=== PATIENT | male | born 1950 | race Two or more races ===

== ENCOUNTER 2018-12-02 10:15 | Inpatient (IN) | payer OTHER ==
[~2018-12-02] VITALS: Ht 188 cm; Wt 91.6 kg
[2018-12-05] MEDS ORDERED: ATORVASTATIN CA40 MG PO (15:18)
[2018-12-05] MEDS ORDERED: BENICAR40 MG PO (15:18)
[2018-12-05] MEDS ORDERED: ZETIA10 MG PO (15:18)
[2018-12-05] MEDS ORDERED: HYDROCHLOROTHIA25 MG PO (15:19)
[2018-12-05] MEDS ORDERED: METFORMIN HCL500 MG PO (15:19)
[2018-12-05] MEDS ORDERED: NORVASC5 MG PO (15:19)
[2018-12-09] MEDS ORDERED: MIRALAX17 GM PO (14:18)
[2018-12-09] MEDS ORDERED: TRAMADOL HCL50 MG PO (14:18)
[2018-12-09] MEDS ORDERED: NEURONTIN300 MG PO (14:18)
[2018-12-09] MEDS ORDERED: TYLENOL EXTRA500 MG PO (14:18)
== END 2018-12-09 15:35 | disposition home or self-care (01) | DRG 355 ==
LOC: SURH 12-08 07:00 → O/R 12-08 10:55 → SURH 12-08 13:45
PROVIDERS: ADMIT Surgery
PROC: 0KXL0Z6 Transfer Left Abdomen Muscle, Transverse Rectus Abdominis Myocutaneous Flap, Open Approach (ICD-10-PCS; 2018-12-08)
PROC: 0KXK0Z6 Transfer Right Abdomen Muscle, Transverse Rectus Abdominis Myocutaneous Flap, Open Approach (ICD-10-PCS; 2018-12-08)
PROC: 0WUF4JZ Supplement Abdominal Wall with Synthetic Substitute, Percutaneous Endoscopic Approach (ICD-10-PCS; principal; 2018-12-08 07:00)
DX: K43.0 Incisional hernia with obstruction, without gangrene (principal); K42.0 Umbilical hernia with obstruction, without gangrene; R26.2 Difficulty in walking, not elsewhere classified; R53.1 Weakness; E11.9 Type 2 diabetes mellitus without complications; I10 Essential (primary) hypertension; E78.00 Pure hypercholesterolemia, unspecified; N40.0 Benign prostatic hyperplasia without lower urinary tract symptoms; C61 Malignant neoplasm of prostate

== ENCOUNTER 2018-12-07 11:15 | Outpatient (CLI) | payer OTHER ==
[~2018-12-07 11:15] MED LIST: ATORVASTATIN CA40 MG PO; BENICAR40 MG PO; HYDROCHLOROTHIA25 MG PO; METFORMIN HCL500 MG PO; NORVASC5 MG PO; ZETIA10 MG PO
== END 2018-12-07 13:20 ==
LOC: EKG 11:15
DX: I10 Essential (primary) hypertension (principal)